=== PATIENT | male | born 1985 | race Caucasian/White ===

== ENCOUNTER 2017-08-21 14:42 | Emergency (ER) | payer MEDICAID ==
[~2017-08-21] VITALS: Ht 177.8 cm; Wt 90.7 kg
[2017-08-21] MEDS ORDERED: NEURONTIN600 MG PO (14:55)
[2017-08-21] MEDS ORDERED: ZYRTEC10 M5 PO (14:55)
[2017-08-21] MEDS ORDERED: LIORESAL 10 MG10 MG PO (14:55)
[2017-08-21] MEDS ORDERED: REMERON30 MG (14:56)
[2017-08-21] MEDS ORDERED: CYMBALTA60 MG PO (14:56)
[2017-08-21] MEDS ORDERED: FLOMAX0.4 MG PO (14:57)
[2017-08-21] MEDS ORDERED: LITHIUM CARBON300 MG (14:57)
[2017-08-21] MEDS ORDERED: NAPROSYN500 MG PO (14:58)
[2017-08-21] MEDS ORDERED: AMBIEN 5 MG TABL5 M1 PO (14:58)
[2017-08-21] MEDS ORDERED: SEROQUEL 50 MG50 MG PO (14:58)
[2017-08-21] MEDS ORDERED: KLONOPIN1 MG PO (14:59)
[2017-08-21] MEDS ORDERED: IMITREX 50 MG T50 MG PO (14:59)
[2017-08-21] MEDS ORDERED: BENTYL 10 MG CA10 M1 PO (15:00)
[2017-08-21] MEDS ORDERED: PROPRANOLOL 1010 MG PO (15:01)
[2017-08-21 15:37] LABS: ABSOLUTE EOSINOPHILS 0.4 thou/uL (0.0-0.7); ABSOLUTE LYMPHOCYTES 2.7 thou/uL (0.8-5.3); ABSOLUTE MONOCYTES 0.6 thou/uL (0.0-1.2); ABSOLUTE NEUTROPHILS 6.2 thou/uL (1.6-8.1); BASOPHILS 0.4 %; EOSINOPHILS 3.6 %; HEMATOCRIT 44.2 % (42.0-52.0); LYMPHOCYTES 27.2 %; MCH 30.8 pg (26.0-34.0); MCV 90.7 fL (80.0-100.0); NUCLEATED RBCS 0 /100WBC; PLATELET COUNT* 265 thou/uL (150-400); POLYS 62.8 %; RBC 4.87 mil/uL (4.50-6.00); RDW-CV 13.2 % (10.5-14.5); WBC 9.9 thou/uL (4.0-11.0)
[2017-08-21 15:47] LABS: ANION GAP 6 mmol/L (7-16); BUN 11 mg/dL (7-18); CALCIUM 10.2 mg/dL (8.5-10.1); CHLORIDE 106 mmol/L (98-107); CO2 28 mmol/L (21-32); CREATININE 0.8 mg/dL (0.6-1.3); GLUCOSE 81 mg/dL (70-99); POTASSIUM 4.2 mmol/L (3.5-5.1); SODIUM 140 mmol/L (136-145)
[2017-08-21 15:54] LABS: ALBUMIN 3.9 g/dL (3.4-5.0); ALKALINE PHOSPHATASE 88 U/L (46-116); SGOT 14 U/L (15-37); SGPT 39 U/L (30-65); TOTAL BILIRUBIN 0.3 mg/dL (<0.1-1.0); TOTAL PROTEIN 7.4 g/dL (6.4-8.2); TROPONIN-I LEVEL <0.06 ng/mL (<0.06); URIC ACID* 6.1 mg/dL (2.6-7.2)
[2017-08-21 16:26] VITALS: BP 138/90
--- NOTE | 2017-08-21 17:37 | EKG ---
[place] [address] ELECTROCARDIOGRAM REPORT Name: MICHAEL BULLOCK JR [id number] Admission: 08/21/17 Attend Phys: Discharge: 08/21/17 Date of : 89 Report #: [id number] THIS REPORT FOR: //name// [facility] ED Test Date: 2017-08-21 Test Time: 14:50:32 Pat Name: MICHAEL BULLOCK Department: Room: Gender: M [employer] Rec[employer]: Mili GOMEZ : 1985 Requested By: Torri Ha Order Number: [id number] MD: Phillip Ryan Measurements Intervals [place] Rate: 91 P: 44 MA: 147 QRS: 45 QRSD: 99 T: 37 QT: 348 QTc: 429 Interpretive Statements Sinus rhythm Atrial premature complex No previous ECG available for comparison Electronically Signed On 08-21-2017 17:37:16 CDT by Phillip Ryan [email or web address] <ELECTRONICALLY SIGNED> By: Phillip Ryan MD, [facility] 08/21/17 1737 1450 1450 Phillip Ryan MD, FACC /EPI
== END 2017-08-21 16:27 | disposition home or self-care (01) ==
LOC: M.ERS 14:42
PROVIDERS: Nurse Practitioner Family
DX: M79.1 Myalgia (principal); F32.9 Major depressive disorder, single episode, unspecified; F17.200 Nicotine dependence, unspecified, uncomplicated; F15.10 Other stimulant abuse, uncomplicated